=== PATIENT | female | born 1995 | race Caucasian/White ===

== ENCOUNTER 2018-06-30 03:53 | Emergency (ER) | payer BC ==
[2018-06-30 04:02] VITALS: BP 126/80
--- NOTE | 2018-06-30 04:31 | EDPHY ---
H & P Stated Complaint: slept on right arm now having pain andpanic attack Time Seen by Provider: 06/30/18 04:12 HPI/ROS: Chief Complaint: Arm pain HPI: 22-year-old woman was lying in bed this morning on her right hand side using her phone. She laid in that position for about 30 min. She has been started developing some aching in her right arm. She began getting nervous about her symptoms look him up on the Internet and became concerned that she might be having a heart attack. She had no substernal chest pain. No shortness of breath. She has no family history of coronary artery disease. She has absolutely no cardiac risk factors. No lightheadedness or fainting. She has not have a history of dyspnea or pain on exertion. No leg pain or swelling. No recent travel or periods of immobility. She is currently without complaint. ROS: 10 systems were reviewed and were negative except those elements noted in the HPI. PMH: Denies Social History: No smoking, no alcohol, occasional marijuana Family History: non-contributory Physical Exam: Gen: Awake, Alert, No Distress HEENT: Nose: no rhinorrhea Eyes: PERRLA, EOMI Mouth: Moist mucosa Neck: Supple, no JVD Chest: nontender, lungs clear to auscultation Heart: S1, S2 normal, no murmur Abd: Soft, non-tender, no guarding Back: no CVA tenderness, no midline tenderness Ext: no edema, non-tender Skin: no rash Neuro: CN II-XII intact, Sensation grossly intact, Strength 5/5 in bilateral upper and lower extremities - Personal History LMP (Females 10-55): 1-7 Days Ago Current Tetanus/Diphtheria Vaccine: Yes Current Tetanus Diphtheria and Acellular Pertussis (TDAP): Yes - Medical/Surgical History Hx Asthma: No Hx Chronic Respiratory Disease: No Hx Diabetes: No Hx Cardiac Disease: No Hx Renal Disease: No Hx Cirrhosis: No Hx Alcoholism: No Hx HIV/AIDS: No Hx Splenectomy or Spleen Trauma: No Other PMH: lower back pain, wisdom teeth - Social History Smoking Status: Never smoked Constitutional: Initial Vital Signs Temperature (C) 36.6 C 06/30/18 03:58 Heart Rate 115 H 06/30/18 03:58 Respiratory Rate 18 06/30/18 03:58 Blood Pressure 126/80 H 06/30/18 03:58 O2 Sat (%) 100 06/30/18 03:58 O2 Delivery Mode Room Air Allergies/Adverse Reactions: No Known Allergies Allergy (Unverified 06/30/18 04:02) Home Medications: Medication Instructions Recorded Nortriptyline HCl 06/30/18 lamoTRIgine 06/30/18 Medical Decision Making ED Course/Re-evaluation: 22-year-old woman presenting with right arm aching after he laid on her right side for 30 min. She is completely neurologically intact. No risk factors for coronary disease. She has been reassured. There are no aspects to her story to have me suspicious of ACS. Will discharge with follow-up with primary care physician, return for any concerns. Departure - Departure Disposition: Home, Routine, Self-Care Clinical Impression: Arm pain Condition: Good Instructions: Arm Pain (ED) Additional Instructions: Return to the emergency department for central chest pain or tightness, shortness of breath, lightheadedness, fainting, or any other concerns. Referrals: Janeen Chance MD [[facility] [place] Primary Care Provider] - As per Instructions
== END 2018-06-30 04:39 | disposition home or self-care (01) ==
DX: M79.601 Pain in right arm (principal)